=== PATIENT | female | born 1955 | race African-American/Black ===

== ENCOUNTER → 2017-01-21 | Outpatient (CLI) | payer MEDICARE, BC ==
[2017-01-21 11:21] LABS: ANION GAP 8 (5-19); BLOOD UREA NITROGEN 19 mg/dL (7-20); CALCIUM 10.4 mg/dL (8.4-10.2); CARBON DIOXIDE 32 mmol/L (22-30); CHLORIDE 101 mmol/L (98-107); CREATININE RESULT 0.62 mg/dL (0.52-1.25); GLUCOSE 230 mg/dL (75-110); POTASSIUM 4.4 mmol/L (3.6-5.0); SODIUM 141.2 mmol/L (137-145)
[2017-01-22 11:39] LABS: CREATININE URINE 52.4 mg/dL (Not Estab.); MICROALBUMIN URINE 8.4 ug/mL (Not Estab.)
== END ==
LOC: OD 09:42
PROVIDERS: ATTEND Internal Medicine Nephrology
DX: R80.9 Proteinuria, unspecified (principal); E11.21 Type 2 diabetes mellitus with diabetic nephropathy; N28.9 Disorder of kidney and ureter, unspecified; I10 Essential (primary) hypertension
CPT/HCPCS: 36415; 80048; 82043; 82570

== ENCOUNTER → 2017-04-16 | Outpatient (CLI) | payer MEDICARE, BC ==
[2017-04-16 12:20] LABS: ALANINE AMINOTRANSFERASE 35 U/L (9-52); ALKALINE PHOSPHATASE 112 U/L (38-126); ANION GAP 11 (5-19); ASPARTATE AMINO TRANSFERASE 18 U/L (14-36); BILIRUBIN,DIRECT 0.3 mg/dL (0.0-0.4); BILIRUBIN,TOTAL 0.5 mg/dL (0.2-1.3); BLOOD UREA NITROGEN 22 mg/dL (7-20); CARBON DIOXIDE 29 mmol/L (22-30); CHLORIDE 103 mmol/L (98-107); CHOLESTEROL 120.58 mg/dL (0-200); CREATININE RESULT 0.59 mg/dL (0.52-1.25); Direct HDL 45 mg/dL (>40); GLUCOSE 220 mg/dL (75-110); POTASSIUM 4.3 mmol/L (3.6-5.0); SODIUM 142.8 mmol/L (137-145); TOTAL PROTEIN 6.4 g/dL (6.3-8.2); TRIGLYCERIDES 74 mg/dL (<150)
[2017-04-16 12:31] LABS: DIRECT LDL 52 mg/dL (<100)
== END ==
LOC: OD 10:34
PROVIDERS: ATTEND Internal Medicine
DX: E78.5 Hyperlipidemia, unspecified (principal); I10 Essential (primary) hypertension; I66.9 Occlusion and stenosis of unspecified cerebral artery; E11.9 Type 2 diabetes mellitus without complications; R42 Dizziness and giddiness; Z79.899 Other long term (current) drug therapy; Z95.1 Presence of aortocoronary bypass graft
CPT/HCPCS: 36415; 80053; 80061

== ENCOUNTER 2017-05-29 08:54 | Emergency (ER) | payer BC, MEDICARE ==
--- NOTE | 2017-05-29 10:20 | ER Document Report ---
ED General - General Chief Complaint: Wound Infection Stated Complaint: TOE INJURY Time Seen by Provider: 05/29/17 09:55 Notes: Ms. Oliver is a 61-year-old female poorly controlled diabetic presenting with several weeks of right-sided toe pain and redness, mild, limited by her neuropathy associated with some drainage and swelling. She is not actually sure how long it has been but her daughter estimates this timeframe. She denies fevers chills. She did not check her blood sugar. 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 TRAVEL OUTSIDE OF THE [place] IN LAST 30 DAYS: No - Related Data Allergies/Adverse Reactions: No Known Allergies Allergy (Unverified 10/27/11 22:18) Home Medications: Current Home Medications Clopidogrel Bisulfate [Plavix 75 mg Tablet] 75 mg PO DAILY 05/29/17 [History] Metformin HCl [Metformin HCl ER] 1,000 mg PO BIDACBS 05/29/17 [History] Past Medical History - Social History Smoking Status: Former Smoker Chew tobacco use (# tins/day): No Frequency of alcohol use: Occasional Drug Abuse: Marijuana Family History: Reviewed & Not Pertinent Patient has suicidal ideation: No Patient has homicidal ideation: No - Past Medical History Cardiac Medical History: Reports: Hx Heart Attack, Hx Hypertension Neurological Medical History: Reports: Hx Cerebrovascular Accident Endocrine Medical History: Reports: Hx Diabetes Mellitus Type 2 Renal/ Medical History: Denies: Hx Peritoneal Dialysis Past Surgical History: Reports: Hx Cardiac Surgery - stent placement - Immunizations Hx Diphtheria, Pertussis, Tetanus Vaccination: - UNKNOWN Review of Systems - Review of Systems Notes: GEN: Denies fever, chills, weight loss ENT: Denies sore throat, nasal discharge, ear pain EYES: Denies blurry vision, eye pain, discharge CV: Denies chest pain, palpitations, edema RESP: Denies cough, shortness of breath, wheezing GI: Denies abdominal pain, nausea, vomiting, diarrhea MSK: D toe pain swelling and drainage, SKIN: Denies rash, skin lesions LYMPH: Denies swollen glands/lymph nodes NEURO: Denies headache, focal weakness or numbness, dizziness PSYCH: Denies depression, suicidal or homicidal ideation Physical Exam - Vital signs Vitals: Temp Pulse Resp BP Pulse Ox 97.9 F 87 16 155/69 H 97 05/29/17 09:00 05/29/17 09:00 05/29/17 09:00 05/29/17 09:00 05/29/17 09:00 - Notes Notes: General: No acute distress, well-nourished Head: Atraumatic, normocephalic ENT: Mouth normal, oropharynx moist, no exudates or tonsillar enlargement Eyes: Conjunctiva normal, pupils equal, lids normal Neck: No JVD, supple, no guarding CVS: Normal rate, regular rhythm, no murmurs Resp: No resp distress, equal and normal breath sounds bilaterally GI: Nondistended, soft, no tenderness to palpation, no rebound or guarding Ext: Right great toe second and third toe swelling, second is the worst, with ulceration beneath the toe, and changes consistent with wet gangrene, nontender. Mild erythema going up the dorsum of the foot. Skin: No rash, warm Lymphatic: No lymphadeopathy noted Neuro: Awake, alert. Face symmetric. Chronic appearing right-sided weakness and contracture consistent with prior stroke. Course - Re-evaluation Re-evalutation: 05/29/17 10:19 Poorly controlled diabetic presents with changes of the foot consistent with cellulitis osteomyelitis versus wet gangrene. We will get x-rays cultures, rule out DKA and admitted for further management. 05/29/17 10:35 X-ray shows osteomyelitis of the second toe. Will withhold antibiotics given that she is clinically stable and will need operation. I spoke with the transfer center advisement at 10:30 AM asking for orthopedics. 05/29/17 11:[address] Silver. Previously spoke with Dr. Euceda from orthopedics who stated typically vascular surgery handle this type of patient. - Vital Signs Vital signs: Temp Pulse Resp BP Pulse Ox 97.8 F 76 16 159/75 H 99 05/29/17 11:06 05/29/17 11:06 05/29/17 09:00 05/29/17 11:06 05/29/17 11:06 - Laboratory Result Diagrams: 05/29/17 09:55 05/29/17 09:55 Laboratory results interpreted by me: 05/29/17 05/29/17 09:55 09:55 RBC 3.71 L Hgb 11.5 L Hct 34.9 L ESR 42 H BUN 22 H Glucose 290 H C-Reactive Protein 64.5 H - Diagnostic Test Radiology reviewed: Image reviewed, Reports reviewed
[2017-05-29 10:22] LABS: ABSOLUTE BASOPHILS # (AUTO) 0.1 10^3/uL (0.0-0.2); ABSOLUTE EOSINOPHILS # (AUTO) 0.1 10^3/uL (0.0-0.6); ABSOLUTE MONOCYTES (AUTO) 0.8 10^3/uL (0.1-1.4); ABSOLUTE NEUT (AUTO) 5.5 10^3/uL (1.7-8.2); BASOPHILS % (AUTO) 0.8 % (0-2); EOSINOPHILS % (AUTO) 1.4 % (0-6); HEMATOCRIT 34.9 % (36.0-47.0); HEMOGLOBIN 11.5 g/dL (12.0-15.5); HGB HCT DIFFERENCE -0.4; LYMPHOCYTES % (AUTO) 23.4 % (13-45); MEAN CORPUSCULAR HEMOGLOBIN 31.1 pg (27.0-33.4); MEAN CORPUSCULAR VOLUME 94 fl (80-97); MONOCYTES % (AUTO) 9.3 % (3-13); RED BLOOD COUNT 3.71 10^6/uL (3.72-5.28); RED CELL DISTRIBUTION WIDTH 13.5 % (11.5-14.0); SEGMENTED NEUTROPHILS % (AUTO) 65.1 % (42-78); WHITE BLOOD COUNT 8.4 10^3/uL (4.0-10.5)
--- NOTE | 2017-05-29 10:31 | RADIOLOGY REPORT (SQ) ---
EXAM DESCRIPTION: FOOT RIGHT COMPLETE COMPLETED DATE/TIME: 05/29/2017 10:22 am REASON FOR STUDY: right 2nd toe infection COMPARISON: None. NUMBER OF VIEWS: Three views. TECHNIQUE: AP, lateral and oblique radiographic images acquired of the right foot. LIMITATIONS: None. FINDINGS: MINERALIZATION: Osteopenia. BONES: There appears to be erosion of the terminal tuft of the a 2nd distal phalanx. JOINTS: No effusions. SOFT TISSUES: No soft tissue swelling. No foreign body. OTHER: No other significant finding. IMPRESSION: Erosion of the terminal tuft of the 2nd distal phalanx concerning for osteomyelitis. TECHNICAL DOCUMENTATION: JOB ID: [id number] [employer]- All Rights Reserved
[2017-05-29 10:48] LABS: ALANINE AMINOTRANSFERASE 34 U/L (9-52); ALBUMIN 3.6 g/dL (3.5-5.0); ALKALINE PHOSPHATASE 119 U/L (38-126); ANION GAP 9 (5-19); ASPARTATE AMINO TRANSFERASE 18 U/L (14-36); BILIRUBIN,DIRECT 0.3 mg/dL (0.0-0.4); BILIRUBIN,TOTAL 0.7 mg/dL (0.2-1.3); BLOOD UREA NITROGEN 22 mg/dL (7-20); C-REACTIVE PROTEIN 64.5 mg/L (<10.0); CALCIUM 9.3 mg/dL (8.4-10.2); CARBON DIOXIDE 29 mmol/L (22-30); CHLORIDE 102 mmol/L (98-107); CREATININE RESULT 0.65 mg/dL (0.52-1.25); GLUCOSE 290 mg/dL (75-110); POTASSIUM 4.2 mmol/L (3.6-5.0); SODIUM 140.3 mmol/L (137-145); TOTAL PROTEIN 6.4 g/dL (6.3-8.2)
[2017-05-29 11:01] LABS: ERYTHROCYTE SEDIMENTATION RATE 42 mm/hr (0-30)
--- NOTE | 2017-05-29 13:56 | RADIOLOGY REPORT (SQ) ---
EXAM DESCRIPTION: CHEST SINGLE VIEW COMPLETED DATE/TIME: 05/29/2017 1:22 pm REASON FOR STUDY: preop COMPARISON: 10/27/2011 EXAM PARAMETERS: NUMBER OF VIEWS: One view. TECHNIQUE: Single frontal radiographic view of the chest acquired. RADIATION DOSE: NA LIMITATIONS: None. FINDINGS: LUNGS AND PLEURA: No opacities, masses or pneumothorax. No pleural effusion. MEDIASTINUM AND HILAR STRUCTURES: No masses. Contour normal. HEART AND VASCULAR STRUCTURES: Heart normal in size. Normal vasculature. BONES: No acute findings. HARDWARE: None in the chest. OTHER: No other significant finding. IMPRESSION: NO ACUTE RADIOGRAPHIC FINDING IN THE CHEST. TECHNICAL DOCUMENTATION: JOB ID: [id number]
[2017-05-29] MEDS ORDERED: METOPROLOL TARTRATE 25 MG TABLET PO ONE (20:54)
[2017-05-29] MEDS ORDERED: METOPROLOL TARTRATE 50 MG TABLET ONE (20:57)
[2017-05-29 22:56] VITALS: BP 165/81
== END 2017-05-29 20:42 | disposition short-term general hospital (02) ==
LOC: ER 08:54
DX: E11.69 Type 2 diabetes mellitus with other specified complication (principal); M86.171 Other acute osteomyelitis, right ankle and foot; E11.40 Type 2 diabetes mellitus with diabetic neuropathy, unspecified; E11.65 Type 2 diabetes mellitus with hyperglycemia; Z89.412 Acquired absence of left great toe; Z87.891 Personal history of nicotine dependence; Z86.73 Personal history of transient ischemic attack (TIA), and cerebral infarction without residual deficits; Z79.02 Long term (current) use of antithrombotics/antiplatelets; Z79.84 Long term (current) use of oral hypoglycemic drugs
CPT/HCPCS: 99285; 36415; 87040; 87070; 87205; 85025; 85652; 86140; 87077; 80053; 87186; 71010; 73630; A9270

== ENCOUNTER → 2017-10-22 | Outpatient (CLI) | payer MEDICARE ==
[2017-10-22 11:53] LABS: ALANINE AMINOTRANSFERASE 31 U/L (9-52); ALBUMIN 4.4 g/dL (3.5-5.0); ALKALINE PHOSPHATASE 94 U/L (38-126); ANION GAP 13 (5-19); ASPARTATE AMINO TRANSFERASE 18 U/L (14-36); BILIRUBIN,DIRECT 0.3 mg/dL (0.0-0.4); BILIRUBIN,TOTAL 0.4 mg/dL (0.2-1.3); BLOOD UREA NITROGEN 25 mg/dL (7-20); CALCIUM 10.2 mg/dL (8.4-10.2); CARBON DIOXIDE 29 mmol/L (22-30); CHLORIDE 105 mmol/L (98-107); CREATININE RESULT 0.74 mg/dL (0.52-1.25); Direct HDL 48 mg/dL (>40); GLUCOSE 99 mg/dL (75-110); POTASSIUM 4.8 mmol/L (3.6-5.0); SODIUM 146.8 mmol/L (137-145); TOTAL PROTEIN 6.7 g/dL (6.3-8.2); TRIGLYCERIDES 55 mg/dL (<150)
[2017-10-22 12:04] LABS: DIRECT LDL 64 mg/dL (<100)
== END ==
LOC: OD 10:18
PROVIDERS: ATTEND Internal Medicine
DX: I25.2 Old myocardial infarction (principal); R42 Dizziness and giddiness; I10 Essential (primary) hypertension; E11.9 Type 2 diabetes mellitus without complications; E78.5 Hyperlipidemia, unspecified; I66.9 Occlusion and stenosis of unspecified cerebral artery; Z95.1 Presence of aortocoronary bypass graft; Z79.899 Other long term (current) drug therapy
CPT/HCPCS: 36415; 80053; 80061; 83036

== ENCOUNTER → 2018-01-23 | Outpatient (CLI) | payer MEDICARE, MEDICAID ==
[2018-01-23 11:00] LABS: ANION GAP 10 (5-19); BLOOD UREA NITROGEN 19 mg/dL (7-20); CALCIUM 10.4 mg/dL (8.4-10.2); CARBON DIOXIDE 29 mmol/L (22-30); CHLORIDE 105 mmol/L (98-107); GLUCOSE 149 mg/dL (75-110); POTASSIUM 4.3 mmol/L (3.6-5.0); SODIUM 144.4 mmol/L (137-145)
[2018-01-24 11:40] LABS: CREATININE URINE 112.2 mg/dL (Not Estab.); MICROALBUMIN URINE 7.5 ug/mL (Not Estab.)
== END ==
LOC: OD 09:16
PROVIDERS: ATTEND Internal Medicine Nephrology
DX: E11.9 Type 2 diabetes mellitus without complications (principal); R80.9 Proteinuria, unspecified
CPT/HCPCS: 36415; 80048; 82043; 82570

== ENCOUNTER → 2018-04-11 | Outpatient (CLI) | payer MEDICARE, MEDICAID ==
[2018-04-11 09:48] LABS: CHOLESTEROL 112.73 mg/dL (0-200); TRIGLYCERIDES 40 mg/dL (<150)
[2018-04-11 10:01] LABS: DIRECT LDL 45 mg/dL (<100)
== END ==
LOC: OD 08:52
PROVIDERS: ATTEND Internal Medicine
DX: I25.10 Atherosclerotic heart disease of native coronary artery without angina pectoris (principal); R42 Dizziness and giddiness; I10 Essential (primary) hypertension; E11.9 Type 2 diabetes mellitus without complications; E78.5 Hyperlipidemia, unspecified; I25.2 Old myocardial infarction; I66.9 Occlusion and stenosis of unspecified cerebral artery; E78.00 Pure hypercholesterolemia, unspecified; Z79.899 Other long term (current) drug therapy
CPT/HCPCS: 36415; 80061

== ENCOUNTER → 2018-04-18 | Outpatient (CLI) | payer MEDICARE, MEDICAID | LOC: OD 17:18 | PROVIDERS: ATTEND Preventive Medicine Undersea and Hyperbaric Medicine | DX: L03.031 Cellulitis of right toe (principal) | CPT/HCPCS: 87070; 87075; 87077; 87186; 87205 ==

== ENCOUNTER → 2018-07-16 | Outpatient (CLI) | payer MEDICARE, MEDICAID ==
--- NOTE | 2018-07-16 15:56 | RADIOLOGY REPORT (SQ) ---
EXAM DESCRIPTION: FOOT RIGHT COMPLETE COMPLETED DATE/TIME: 07/16/2018 3:38 pm REASON FOR STUDY: NON-PRS CHRONIC ULCER OTH PRT RIGHT FOOT W NECROSIS OF BONE E11.621 TYPE 2 DIABET ES MELLITUS WITH FOOT ULCER L97.514 NON-PRS CHRONIC ULCER OTH PRT RIGHT FOOT W NECROSIS COMPARISON: 05/29/2017 NUMBER OF VIEWS: Three views. TECHNIQUE: AP, lateral and oblique radiographic images acquired of the right foot. LIMITATIONS: None. FINDINGS: MINERALIZATION: Osteopenia. BONES: Presumed amputation of the distal seconds ray at the level of proximal phalanx. No evidence f or osteomyelitis in the seconds phalanx. There is diffuse destruction of the 1st distal phalanx with soft tissue swelling. Osteomyelitis. JOINTS: No effusions. SOFT TISSUES: No soft tissue swelling. No foreign body. OTHER: No other significant finding. IMPRESSION: Osteomyelitis of the distal 1st phalanx. Amputation level of proximal phalanx seconds ray. TECHNICAL DOCUMENTATION: JOB ID: [id number] [employer]- All Rights Reserved Reading location - IP/workstation name: [email or web address]
[2018-07-16 15:58] LABS: ABSOLUTE BASOPHILS # (AUTO) 0.1 10^3/uL (0.0-0.2); ABSOLUTE EOSINOPHILS # (AUTO) 0.1 10^3/uL (0.0-0.6); ABSOLUTE LYMPHOCYTES (AUTO) 2.3 10^3/uL (0.5-4.7); ABSOLUTE MONOCYTES (AUTO) 0.6 10^3/uL (0.1-1.4); ABSOLUTE NEUT (AUTO) 6.9 10^3/uL (1.7-8.2); BASOPHILS % (AUTO) 0.5 % (0-2); EOSINOPHILS % (AUTO) 0.9 % (0-6); HEMATOCRIT 33.8 % (36.0-47.0); HEMOGLOBIN 11.2 g/dL (12.0-15.5); LYMPHOCYTES % (AUTO) 23.5 % (13-45); MEAN CORPUSCULAR HEMOGLOBIN 30.1 pg (27.0-33.4); MEAN CORPUSCULAR HGB CONC 33.1 g/dL (32.0-36.0); MEAN CORPUSCULAR VOLUME 91 fl (80-97); MONOCYTES % (AUTO) 6.5 % (3-13); PLATELET COUNT 420 10^3/uL (150-450); RED BLOOD COUNT 3.71 10^6/uL (3.72-5.28); RED CELL DISTRIBUTION WIDTH 13.9 % (11.5-14.0); SEGMENTED NEUTROPHILS % (AUTO) 68.6 % (42-78); TOTAL CELLS COUNTED % (AUTO) 100 %
[2018-07-16 16:04] LABS: ALANINE AMINOTRANSFERASE 24 U/L (9-52); ALBUMIN 3.8 g/dL (3.5-5.0); ALKALINE PHOSPHATASE 89 U/L (38-126); ANION GAP 10 (5-19); ASPARTATE AMINO TRANSFERASE 18 U/L (14-36); BILIRUBIN,DIRECT 0.2 mg/dL (0.0-0.4); BILIRUBIN,TOTAL 0.2 mg/dL (0.2-1.3); BLOOD UREA NITROGEN 24 mg/dL (7-20); CALCIUM 9.6 mg/dL (8.4-10.2); CARBON DIOXIDE 32 mmol/L (22-30); CHLORIDE 107 mmol/L (98-107); GLUCOSE 92 mg/dL (75-110); SODIUM 148.9 mmol/L (137-145); TOTAL PROTEIN 6.7 g/dL (6.3-8.2)
[2018-07-16 16:07] LABS: C-REACTIVE PROTEIN < 5.0 mg/L (<10.0)
[2018-07-16 16:35] LABS: ERYTHROCYTE SEDIMENTATION RATE 24 mm/hr (0-30)
== END ==
LOC: OD 14:51
PROVIDERS: ATTEND Preventive Medicine Undersea and Hyperbaric Medicine
DX: E11.621 Type 2 diabetes mellitus with foot ulcer (principal); L97.514 Non-pressure chronic ulcer of other part of right foot with necrosis of bone; M86.8X7 Other osteomyelitis, ankle and foot
CPT/HCPCS: 36415; 80053; 83036; 85025; 85652; 86140

== ENCOUNTER 2018-09-05 20:21 | Emergency (ER) | payer MEDICARE, MEDICAID ==
--- NOTE | 2018-09-05 20:44 | ER Document Report ---
ED General - General Stated Complaint: FALL Time Seen by Provider: 09/05/18 20:30 Notes: Patient is a 62-year-old female that comes to the emergency department for chief complaint of fall and head injury. Patient reports she was on her couch, states she fell off the couch and hit her head, she did pass out, she was found by EMS to be alert but with very low blood sugar at 39, she was given oral glucose, patient states that she has pain in the area where she hit her head and swelling above her left eye, she denies any other locations of pain. Past medical history of chronic right-sided weakness from CVA, she is on Plavix, she is on glimepiride for her diabetes. She has taken her medications today. She states she had turkey for lunch. She denies chest pain, shortness of breath, fever, vomiting. TRAVEL OUTSIDE OF THE [place] IN LAST 30 DAYS: No - Related Data Allergies/Adverse Reactions: No Known Allergies Allergy (Unverified 10/27/11 22:18) Past Medical History - General Information source: Patient - Social History Smoking Status: Never Smoker Frequency of alcohol use: None Drug Abuse: None Lives with: Family Family History: Reviewed & Not Pertinent - Past Medical History Cardiac Medical History: Reports: Hx Heart Attack, Hx Hypertension Neurological Medical History: Reports: Hx Cerebrovascular Accident Endocrine Medical History: Reports: Hx Diabetes Mellitus Type 2 Renal/ Medical History: Denies: Hx Peritoneal Dialysis Past Surgical History: Reports: Hx Cardiac Surgery - stent placement Review of Systems - Review of Systems Constitutional: No symptoms reported EENT: No symptoms reported Cardiovascular: No symptoms reported Respiratory: No symptoms reported Gastrointestinal: No symptoms reported Genitourinary: No symptoms reported Female Genitourinary: No symptoms reported Musculoskeletal: No symptoms reported Skin: No symptoms reported Hematologic/Lymphatic: No symptoms reported Neurological/Psychological: See HPI Physical Exam - Vital signs Vitals: Pulse Ox 99 09/05/18 20:30 - Notes Notes: GENERAL: Alert, interacts well. No acute distress. HEAD: There is a hematoma over the left eyebrow, does not include the eyelids, no open wounds, no noted tenderness, no other traumatic findings. EYES: Pupils equal, round, and reactive to light. Extraocular movements intact. ENT: Oral mucosa moist, tongue midline. [Nares patent, no nasal septal hematoma , TM's intact.] NECK: Full range of motion. Supple. Trachea midline. LUNGS: Clear to auscultation bilaterally, no wheezes, rales, or rhonchi. No respiratory distress. HEART: Regular rate and rhythm. No murmur ABDOMEN: Soft, non-tender. Non-distended. Bowel sounds present in all 4 quadrants. EXTREMITIES: Chronic right sided weakness with grey of the right arm, left side evaluation unremarkable, normal distal neurovascular exam. BACK: no cervical, thoracic, lumbar midline tenderness. No saddle anesthesia, normal distal neurovascular exam. NEUROLOGICAL: Alert and oriented x3. Normal speech. Chronic right-sided weakness. [cranial nerves II through XII grossly intact]. PSYCH: Normal affect, normal mood. SKIN: Warm, dry, normal turgor. No rashes or lesions noted. Course - Re-evaluation Re-evalutation: Blood chemistry unremarkable. Patient is alert and oriented. She ate, on recheck after eating crackers her blood glucose is 151. She denies any current complaints other than mild headache. CT of the head shows left scalp/frontal hematoma with no intracranial findings or skull fracture. CT of the neck unremarkable. Family at bedside states that patient fell asleep or passed out on the couch and then fell off the couch, they state that she did not eat enough today but did take her medications. No fever, sick symptoms, chest pain, shortness of breath or other reported complaints by patient and family suggesting other causes of hypoglycemia. Patient has been monitored for several hours now, she continues to be main alert and well-appearing, blood glucose trended up after eating. They are asking to go home. Discussed importance of eating along with her medications, discussed head injury precautions, discussed follow-up and return precautions. Patient states she has close follow-up with primary care. Family states understanding and agreement. - Vital Signs Vital signs: Temp Pulse Resp BP Pulse Ox 98.6 F 14 165/90 H 100 09/05/18 22:18 09/05/18 23:01 09/05/18 23:01 09/05/18 23:01 - Laboratory Result Diagrams: 09/05/18 20:40 Laboratory results interpreted by me: 09/05/18 09/05/18 21:41 22:59 POC Glucose 151 H 225 H Discharge - Discharge Clinical Impression: Hypoglycemia Fall Qualifiers: Encounter type: initial encounter Qualified Code(s): W19.XXXA - Unspecified fall, initial encounter Scalp hematoma Qualifiers: Encounter type: initial encounter Qualified Code(s): S00.03XA - Contusion of scalp, initial encounter Condition: Stable Disposition: HOME, SELF-CARE Additional Instructions: You have a hematoma on her scalp but no concerning findings on the imaging or on your evaluation otherwise. This will resolve with time. Your blood sugar became very low today, on monitoring this has not shown any concerning abnormalities after you were fed. Remember to eat regularly while you are taking your medications. Follow-up in the next 2-3 days with your primary care provider for additional evaluation and management. Return to the emergency department for any concerning symptoms including passing out, see head injury precautions listed below. Head Injury Precautions At this point, there is no evidence that your head injury is serious. Observation is necessary, however. Take only clear liquids for the first few hours, unless told otherwise by the doctor. If no pain medication was prescribed, you may take acetaminophen according to the directions on the bottle. Do not take any medication that may alter your level of alertness (unless you've discussed it with the doctor first) . Limit activity for the first 24 hours. Bed rest is best. During the first 24 hours, check to see approximately every two to three hours that the patient is easily arousable, responds normally, and can perform common tasks such as walking without difficulty. Contact your doctor or go to the hospital if any of the following things occur: Persistent vomiting, difficulty in arousing the patient, worsening or continued headache, or failure to improve as expected. Head injuries can cause symptoms that persist for a few days or even a few weeks. Referrals: LILLY GIVENS DPM [Primary Care Provider] - Follow up as needed
--- NOTE | 2018-09-05 21:07 | RADIOLOGY REPORT (SQ) ---
EXAM DESCRIPTION: CT HEAD WITHOUT COMPLETED DATE/TIME: 09/05/2018 8:58 pm REASON FOR STUDY: fall, head injury, LOC, on plavix COMPARISON: CT brain 10/27/2011 TECHNIQUE: Axial images acquired through the brain without intravenous contrast. Images reviewed wi th bone, brain and subdural windows. Additional sagittal and coronal reconstructions were generated. Images stored on PACS. All CT scanners at this facility use dose modulation, iterative reconstruction, and/or weight based d osing when appropriate to reduce radiation dose to as low as reasonably achievable (ALARA). [facility]: Dose Right [facility]: CareDose [facility]: Dose Right [facility]: Teradose 4D [facility]: Smart streamOnce RADIATION DOSE: CT Rad equipment meets quality standard of care and radiation dose reduction techniq ues were employed. CTDIvol: 53.2 mGy. DLP: 991 mGy-cm. mGy. LIMITATIONS: None. FINDINGS: VENTRICLES: Normal size and contour. CEREBRUM: No masses. No hemorrhage. No midline shift. No evidence for acute infarction. Old left M CA distribution infarct. CEREBELLUM: No masses. No hemorrhage. No alteration of density. No evidence for acute infarction. EXTRAAXIAL SPACES: No fluid collections. No masses. ORBITS AND GLOBE: No intra- or extraconal masses. Normal contour of globe without masses. CALVARIUM: No fracture. PARANASAL SINUSES: No fluid or mucosal thickening. SOFT TISSUES: 3 x 2 cm acute hematoma left frontal scalp. OTHER: No other significant finding. IMPRESSION: No acute intracranial changes. Left frontal scalp hematoma without underlying skull fracture. Old left MCA distribution infarct EVIDENCE OF ACUTE STROKE: NO. COMMENT: Quality ID # 436: Final reports with documentation of one or more dose reduction techniques (e.g., Automated exposure control, adjustment of the mA and/or kV according to patient size, use of iterative reconstruction technique) TECHNICAL DOCUMENTATION: JOB ID: [id number] [employer]- All Rights Reserved Reading location - IP/workstation name: [email or web address]
--- NOTE | 2018-09-05 21:10 | RADIOLOGY REPORT (SQ) ---
EXAM DESCRIPTION: CT CERVICAL SPINE WITHOUT COMPLETED DATE/TIME: 09/05/2018 8:58 pm REASON FOR STUDY: fall, head injury, neck pain COMPARISON: None. TECHNIQUE: Axial images acquired through the cervical spine without intravenous contrast. Images re viewed with lung, soft tissue and bone windows. Reconstructed coronal and sagittal MPR images review ed. Images stored on PACS. All CT scanners at this facility use dose modulation, iterative reconstruction, and/or weight based d osing when appropriate to reduce radiation dose to as low as reasonably achievable (ALARA). [facility]: Dose Right [facility]: CareDose [facility]: Dose Right [facility]: Teradose 4D [facility]: Smart Technologies RADIATION DOSE: CT Rad equipment meets quality standard of care and radiation dose reduction techniq ues were employed. CTDIvol: 15.4 mGy. DLP: 325 mGy-cm. mGy. LIMITATIONS: None. FINDINGS: ALIGNMENT: Mild anterolisthesis of C7 over T1 related to advanced facet arthropathy. MINERALIZATION: Normal. VERTEBRAL BODIES: No fractures or dislocation. DISCS: Craniocervical junction, C1-2, C2-3 are unremarkable. At C3-4 and C4-5, posterior disc bulging is present. No bony central or foraminal stenosis. At C5-6, mild central canal stenosis, mild right and moderate left foraminal narrowing is present fro m disc bulge and facet and ligament hypertrophy. At C6-7, mild central canal stenosis, mild right and moderate left foraminal narrowing is present fro m disc bulge and facet and ligament hypertrophy Degenerative anterolisthesis of C7 over T1 without significant central or foraminal encroachment. FACETS, LATERAL MASSES, POSTERIOR ELEMENTS: No fractures. No dislocation. No acute findings. HARDWARE: None in the spine. VISUALIZED RIBS: No fractures. LUNG APICES AND SOFT TISSUES: No significant or acute findings. OTHER: No other significant finding. IMPRESSION: No acute findings TECHNICAL DOCUMENTATION: JOB ID: [id number] Quality ID # [id number]: Final reports with documentation of one or more dose reduction techniques (e.g., Au tomated exposure control, adjustment of the mA and/or kV according to patient size, use of iterative reconstruction technique) 2010 [employer]- All Rights Reserved Reading location - IP/workstation name: [email or web address]
[2018-09-05 21:24] LABS: ANION GAP 11 (5-19); BLOOD UREA NITROGEN 20 mg/dL (7-20); CALCIUM 10.1 mg/dL (8.4-10.2); CARBON DIOXIDE 30 mmol/L (22-30); CHLORIDE 103 mmol/L (98-107); GLUCOSE 83 mg/dL (75-110); POTASSIUM 4.1 mmol/L (3.6-5.0); SODIUM 143.5 mmol/L (137-145)
[2018-09-05] MEDS ORDERED: ACETAMINOPHEN 325 MG TABLET PO ONE (22:06)
[2018-09-05 23:49] VITALS: BP 165/90
== END 2018-09-05 23:35 | disposition home or self-care (01) ==
LOC: ER 20:21
DX: S00.03XA Contusion of scalp, initial encounter (principal); W08.XXXA Fall from other furniture, initial encounter; E11.649 Type 2 diabetes mellitus with hypoglycemia without coma; Z79.84 Long term (current) use of oral hypoglycemic drugs; R22.0 Localized swelling, mass and lump, head; R51 Headache; I69.351 Hemiplegia and hemiparesis following cerebral infarction affecting right dominant side; Z79.02 Long term (current) use of antithrombotics/antiplatelets; I10 Essential (primary) hypertension; I25.2 Old myocardial infarction; Z95.5 Presence of coronary angioplasty implant and graft
CPT/HCPCS: 99284; 36415; 82962; 80048; 70450; 72125; A9270

== ENCOUNTER → 2018-10-02 | Outpatient (CLI) | payer MEDICARE, MEDICAID ==
[2018-10-02 16:36] LABS: ABSOLUTE EOSINOPHILS # (AUTO) 0.2 10^3/uL (0.0-0.6); ABSOLUTE LYMPHOCYTES (AUTO) 1.8 10^3/uL (0.5-4.7); ABSOLUTE MONOCYTES (AUTO) 0.5 10^3/uL (0.1-1.4); ABSOLUTE NEUT (AUTO) 3.5 10^3/uL (1.7-8.2); BASOPHILS % (AUTO) 0.8 % (0-2); EOSINOPHILS % (AUTO) 2.8 % (0-6); HEMATOCRIT 31.4 % (36.0-47.0); HEMOGLOBIN 10.5 g/dL (12.0-15.5); LYMPHOCYTES % (AUTO) 29.6 % (13-45); MEAN CORPUSCULAR HGB CONC 33.4 g/dL (32.0-36.0); MEAN CORPUSCULAR VOLUME 90 fl (80-97); MONOCYTES % (AUTO) 8.3 % (3-13); PLATELET COUNT 382 10^3/uL (150-450); RED CELL DISTRIBUTION WIDTH 14.3 % (11.5-14.0); SEGMENTED NEUTROPHILS % (AUTO) 58.5 % (42-78); TOTAL CELLS COUNTED % (AUTO) 100 %
--- NOTE | 2018-10-02 16:44 | RADIOLOGY REPORT (SQ) ---
EXAM DESCRIPTION: FOOT RIGHT COMPLETE COMPLETED DATE/TIME: 10/02/2018 4:30 pm REASON FOR STUDY: NON PRESSURE ULCER RT FOOT WITH NECROSIS OF BONE E11.21 TYPE 2 DIABETES MELLITUS WITH DIABETIC NEPHROPATHY L97.514 NON-PRS CHRONIC ULCER OTH PRT RIGHT FOOT W NECROSIS E11.621 TYPE 2 DIABETES MELLITUS WITH FOOT ULCER COMPARISON: None. NUMBER OF VIEWS: Three views. TECHNIQUE: AP, lateral and oblique radiographic images acquired of the right foot. LIMITATIONS: None. FINDINGS: Bones are osteopenic. There is a defect in the proximal 1st phalanx with irregular anteri or margins. There is a gap between the anterior margin and a bone fragment which is angled dorsally. Uncertain if this is a pathologic fracture or heterotopic bone status post amputation. Prior amput ation 2nd phalanx at proximal phalangeal midshaft. IMPRESSION: Osteomyelitis and pathologic fracture or heterotopic bone 1st phalanx. TECHNICAL DOCUMENTATION: JOB ID: [id number] [employer]- All Rights Reserved Reading location - IP/workstation name: [email or web address]
[2018-10-02 17:02] LABS: ALANINE AMINOTRANSFERASE 15 U/L (9-52); ALBUMIN 3.8 g/dL (3.5-5.0); ALKALINE PHOSPHATASE 104 U/L (38-126); ANION GAP 11 (5-19); ASPARTATE AMINO TRANSFERASE 15 U/L (14-36); BILIRUBIN,DIRECT 0.2 mg/dL (0.0-0.4); BILIRUBIN,TOTAL 0.4 mg/dL (0.2-1.3); BLOOD UREA NITROGEN 20 mg/dL (7-20); CALCIUM 9.7 mg/dL (8.4-10.2); CARBON DIOXIDE 30 mmol/L (22-30); CHLORIDE 101 mmol/L (98-107); GLUCOSE 171 mg/dL (75-110); POTASSIUM 4.4 mmol/L (3.6-5.0); SODIUM 141.8 mmol/L (137-145); TOTAL PROTEIN 6.6 g/dL (6.3-8.2)
[2018-10-02 17:06] LABS: C-REACTIVE PROTEIN < 5.0 mg/L (<10.0)
[2018-10-02 17:13] LABS: ERYTHROCYTE SEDIMENTATION RATE 25 mm/hr (0-30)
== END ==
LOC: OD 15:28
PROVIDERS: ATTEND Preventive Medicine Undersea and Hyperbaric Medicine
DX: E11.621 Type 2 diabetes mellitus with foot ulcer (principal); L97.514 Non-pressure chronic ulcer of other part of right foot with necrosis of bone; M86.8X7 Other osteomyelitis, ankle and foot; M84.477D Pathological fracture, right toe(s), subsequent encounter for fracture with routine healing
CPT/HCPCS: 36415; 80053; 83036; 85025; 85652; 86140

== ENCOUNTER → 2018-11-07 | Outpatient (CLI) | payer MEDICARE, MEDICAID ==
[2018-11-07 11:04] LABS: ALANINE AMINOTRANSFERASE 26 U/L (9-52); ALBUMIN 3.8 g/dL (3.5-5.0); ALKALINE PHOSPHATASE 107 U/L (38-126); ANION GAP 12 (5-19); ASPARTATE AMINO TRANSFERASE 19 U/L (14-36); BILIRUBIN,DIRECT 0.3 mg/dL (0.0-0.4); BILIRUBIN,TOTAL 0.3 mg/dL (0.2-1.3); BLOOD UREA NITROGEN 19 mg/dL (7-20); CALCIUM 9.6 mg/dL (8.4-10.2); CARBON DIOXIDE 29 mmol/L (22-30); CHLORIDE 101 mmol/L (98-107); CHOLESTEROL 113.26 mg/dL (0-200); GLUCOSE 97 mg/dL (75-110); POTASSIUM 4.5 mmol/L (3.6-5.0); SODIUM 142.2 mmol/L (137-145); TOTAL PROTEIN 6.8 g/dL (6.3-8.2); TRIGLYCERIDES 51 mg/dL (<150)
[2018-11-07 11:16] LABS: DIRECT LDL 61 mg/dL (<100)
== END ==
LOC: OD 09:22
PROVIDERS: ATTEND Internal Medicine
DX: I25.10 Atherosclerotic heart disease of native coronary artery without angina pectoris (principal); R42 Dizziness and giddiness; I10 Essential (primary) hypertension; D11.9 Benign neoplasm of major salivary gland, unspecified; E78.5 Hyperlipidemia, unspecified; I25.2 Old myocardial infarction; I66.9 Occlusion and stenosis of unspecified cerebral artery
CPT/HCPCS: 36415; 80053; 80061

== ENCOUNTER → 2018-12-16 | Outpatient (CLI) | payer MEDICARE, MEDICAID ==
[2018-12-16 14:10] LABS: ABSOLUTE BASOPHILS # (AUTO) 0.1 10^3/uL (0.0-0.2); ABSOLUTE EOSINOPHILS # (AUTO) 0.2 10^3/uL (0.0-0.6); ABSOLUTE LYMPHOCYTES (AUTO) 1.9 10^3/uL (0.5-4.7); ABSOLUTE MONOCYTES (AUTO) 0.4 10^3/uL (0.1-1.4); ABSOLUTE NEUT (AUTO) 3.6 10^3/uL (1.7-8.2); BASOPHILS % (AUTO) 0.8 % (0-2); EOSINOPHILS % (AUTO) 2.5 % (0-6); HEMATOCRIT 34.3 % (36.0-47.0); HEMOGLOBIN 11.3 g/dL (12.0-15.5); MEAN CORPUSCULAR HEMOGLOBIN 29.2 pg (27.0-33.4); MEAN CORPUSCULAR HGB CONC 32.9 g/dL (32.0-36.0); MEAN CORPUSCULAR VOLUME 89 fl (80-97); MONOCYTES % (AUTO) 6.5 % (3-13); PLATELET COUNT 363 10^3/uL (150-450); RED BLOOD COUNT 3.87 10^6/uL (3.72-5.28); RED CELL DISTRIBUTION WIDTH 14.2 % (11.5-14.0); SEGMENTED NEUTROPHILS % (AUTO) 59.2 % (42-78); TOTAL CELLS COUNTED % (AUTO) 100 %; WHITE BLOOD COUNT 6.1 10^3/uL (4.0-10.5)
--- NOTE | 2018-12-16 14:12 | RADIOLOGY REPORT (SQ) ---
EXAM DESCRIPTION: FOOT RIGHT COMPLETE COMPLETED DATE/TIME: 12/16/2018 1:36 pm REASON FOR STUDY: NON-PRS CHRONIC ULCER OTH PRT RIGHT FOOT W NECROSIS OF BONE E11.621 TYPE 2 DIABET ES MELLITUS WITH FOOT ULCER L97.514 NON-PRS CHRONIC ULCER OTH PRT RIGHT FOOT W NECROSIS COMPARISON: 10/02/2018. NUMBER OF VIEWS: Three views. TECHNIQUE: AP, lateral and oblique without weight bearing radiographic images acquired of the right foot. LIMITATIONS: None. FINDINGS: MINERALIZATION: Normal. BONES: Interval surgical resection of the distal great toe. Associated soft tissue deformity. Previ ous amputation of the 2nd toe. No acute fracture or dislocation. No worrisome bone lesions. No signi ficant osteophytes. JOINTS: No erosions. No rayshawn-articular osteopenia. No chondrocalcinosis. SOFT TISSUES: No swelling. No calcifications. OTHER: No other significant finding. IMPRESSION: SURGICAL CHANGES, AMPUTATION OF THE 1ST AND 2ND TOES. OTHERWISE NO ACUTE OR SIGNIFICANT FINDINGS. TECHNICAL DOCUMENTATION: JOB ID: [id number] [employer]- All Rights Reserved Reading location - IP/workstation name: [email or web address]
[2018-12-16 14:44] LABS: ALANINE AMINOTRANSFERASE 27 U/L (9-52); ALBUMIN 4.1 g/dL (3.5-5.0); ALKALINE PHOSPHATASE 99 U/L (38-126); ANION GAP 8 (5-19); ASPARTATE AMINO TRANSFERASE 17 U/L (14-36); BILIRUBIN,DIRECT 0.3 mg/dL (0.0-0.4); BILIRUBIN,TOTAL 0.3 mg/dL (0.2-1.3); BLOOD UREA NITROGEN 21 mg/dL (7-20); CALCIUM 9.7 mg/dL (8.4-10.2); CARBON DIOXIDE 30 mmol/L (22-30); CHLORIDE 103 mmol/L (98-107); GLUCOSE 227 mg/dL (75-110); POTASSIUM 4.3 mmol/L (3.6-5.0); SODIUM 141.3 mmol/L (137-145); TOTAL PROTEIN 6.7 g/dL (6.3-8.2)
[2018-12-16 14:48] LABS: C-REACTIVE PROTEIN < 5.0 mg/L (<10.0)
[2018-12-16 15:19] LABS: ERYTHROCYTE SEDIMENTATION RATE 16 mm/hr (0-30)
== END ==
LOC: WC 12:55
PROVIDERS: ATTEND Nurse Practitioner
DX: E11.621 Type 2 diabetes mellitus with foot ulcer (principal); L97.514 Non-pressure chronic ulcer of other part of right foot with necrosis of bone
CPT/HCPCS: 36415; 80053; 83036; 85025; 85652; 86140

== ENCOUNTER → 2019-01-15 | Outpatient (CLI) | payer MEDICARE ==
[2019-01-15 13:00] LABS: ABSOLUTE EOSINOPHILS # (AUTO) 0.2 10^3/uL (0.0-0.6); ABSOLUTE LYMPHOCYTES (AUTO) 1.7 10^3/uL (0.5-4.7); ABSOLUTE MONOCYTES (AUTO) 0.4 10^3/uL (0.1-1.4); ABSOLUTE NEUT (AUTO) 3.1 10^3/uL (1.7-8.2); BASOPHILS % (AUTO) 0.6 % (0-2); HEMATOCRIT 32.1 % (36.0-47.0); HEMOGLOBIN 10.7 g/dL (12.0-15.5); LYMPHOCYTES % (AUTO) 31.8 % (13-45); MEAN CORPUSCULAR HEMOGLOBIN 29.7 pg (27.0-33.4); MEAN CORPUSCULAR HGB CONC 33.4 g/dL (32.0-36.0); MEAN CORPUSCULAR VOLUME 89 fl (80-97); MONOCYTES % (AUTO) 7.8 % (3-13); PLATELET COUNT 322 10^3/uL (150-450); RED BLOOD COUNT 3.61 10^6/uL (3.72-5.28); RED CELL DISTRIBUTION WIDTH 14.4 % (11.5-14.0); SEGMENTED NEUTROPHILS % (AUTO) 56.8 % (42-78); TOTAL CELLS COUNTED % (AUTO) 100 %; WHITE BLOOD COUNT 5.5 10^3/uL (4.0-10.5)
[2019-01-15 13:11] LABS: INTERNATIONAL RATION (INR) 0.94; PROTHROMBIN TIME 13.1 SEC (11.4-15.4)
[2019-01-15 13:19] LABS: ANION GAP 9 (5-19); BLOOD UREA NITROGEN 21 mg/dL (7-20); CARBON DIOXIDE 31 mmol/L (22-30); CHLORIDE 104 mmol/L (98-107); GLUCOSE 179 mg/dL (75-110); POTASSIUM 4.4 mmol/L (3.6-5.0); SODIUM 143.6 mmol/L (137-145)
== END ==
LOC: OD 12:15
PROVIDERS: ATTEND Specialist
DX: I25.118 Atherosclerotic heart disease of native coronary artery with other forms of angina pectoris (principal); R42 Dizziness and giddiness; I10 Essential (primary) hypertension; E11.9 Type 2 diabetes mellitus without complications; I66.9 Occlusion and stenosis of unspecified cerebral artery; E78.5 Hyperlipidemia, unspecified; I73.9 Peripheral vascular disease, unspecified; I25.2 Old myocardial infarction; R01.1 Cardiac murmur, unspecified; R07.9 Chest pain, unspecified; Z98.61 Coronary angioplasty status; Z79.899 Other long term (current) drug therapy
CPT/HCPCS: 36415; 80051; 82565; 82947; 83735; 84520; 85025; 85610; 85730

== ENCOUNTER → 2019-01-20 | Day surgery (SDC) | payer MEDICARE ==
[~2019-01-20] MED LIST: ASPIRIN 325 MG TABLET PO PRN; ATENOLOL 50 MG TABLET PO PRN; DIAZEPAM 5 MG TABLET PO PRN; DIPHENHYDRAMINE HCL 50 MG CAPSULE PO PRN; FENTANYL CITRATE INJ/PF 100 MCG/2 ML AMPUL ONE; HEPARIN SOD (PORCINE) 1,000 UNIT/ML 10 ML VIAL ONE; HEPARIN SODIUM,PORCINE/NS/PF 2,000 UNIT/1,000 ML RTUINJ IV ONE; HYDRALAZINE HCL INJ/PF 20 MG/1 ML SDV IV ONE; HYDRALAZINE HCL INJ/PF 20 MG/1 ML SDV ONE; LIDOCAINE 1% INJ-PF (10 MG/ML) 30 ML SDV ONE; LOSARTAN POTASSIUM 50 MG TABLET PO PRN; MIDAZOLAM 2 MG/2 ML INJ ONE; NITROGLYCERIN 0.4 MG/TAB 25 TAB/BOTTLE SL PRN; NORMAL SALINE 1000 ML 1,000 ML IV PRN; RADIAL COCKTAIL SYRINGE 10 ML IV PRN
[2019-01-20 08:23] LABS: HEMATOCRIT 31.1 % (36.0-47.0); HEMOGLOBIN 10.3 g/dL (12.0-15.5); MEAN CORPUSCULAR HEMOGLOBIN 29.7 pg (27.0-33.4); MEAN CORPUSCULAR HGB CONC 33.1 g/dL (32.0-36.0); MEAN CORPUSCULAR VOLUME 90 fl (80-97); PLATELET COUNT 314 10^3/uL (150-450); RED BLOOD COUNT 3.47 10^6/uL (3.72-5.28); RED CELL DISTRIBUTION WIDTH 14.5 % (11.5-14.0); WHITE BLOOD COUNT 5.3 10^3/uL (4.0-10.5)
[2019-01-20 08:26] LABS: INTERNATIONAL RATION (INR) 0.96; PROTHROMBIN TIME 13.3 SEC (11.4-15.4)
[2019-01-20 08:42] LABS: ANION GAP 8 (5-19); BLOOD UREA NITROGEN 23 mg/dL (7-20); CALCIUM 9.6 mg/dL (8.4-10.2); CARBON DIOXIDE 31 mmol/L (22-30); CHLORIDE 105 mmol/L (98-107); GLUCOSE 208 mg/dL (75-110); POTASSIUM 4.3 mmol/L (3.6-5.0); SODIUM 143.5 mmol/L (137-145)
--- NOTE | 2019-01-20 11:49 | Operative Report ---
Operative Report DATE OF SURGERY: 01/20/19 PREOPERATIVE DIAGNOSIS: Coronary artery disease POSTOPERATIVE DIAGNOSIS: Ischemic cardiomyopathy, coronary artery disease OPERATION: Femoral approach left heart catheterization coronary angiography and left ventriculography SURGEON: KINGS CARRASQUILLO ANESTHESIA: Moderate Sedation COMPLICATIONS: None PROCEDURE: Following informed consent, the patient was premedicated with Diazepam and Benadryl. The right femoral region was prepared in the usual sterile and draped manner and anesthetized with 1% Lidocaine solution. A 6 Kazakh Introducer was placed transcutaneously into the right femoral artery without difficulty. A 6 Kazakh angled pigtail catheter was used for left heart catheterization and left ventriculography. This was performed in the standard CACERES projection. LVEDP was measured prior to and after the ventriculogram. Pull back across the aortic valve was performed with continuous hemodynamic monitoring. The catheter was exchanged to a JL-4 coronary catheter over a 0.035 ``J guidewire, and selective angiography was performed in multiple orthogonal projections. Selective right coronary angiography was performed using a JR-4 catheter. At the conclusion of the procedure, the catheter and sheaths were removed and hemostasis was achieved without difficulty. The patient left the Cardiac Catheterization Lab in stable condition, with intact distal pulses and no chest pain or other complications from the procedure. Conscious sedation was initiated, monitored, and maintained during the procedure with the start time of 833 and a completion time of 918 for a total procedure time of 45 minutes. A total of 1.5 milligrams of Versed and 50 micrograms and fentanyl were used for conscious sedation. HEMODYNAMIC DATA: [Aortic pressure to be getting the case is 134/53, post ventriculography LV pressure is 147/16 aortic pressure on pullback was 150/52 there is no gradient across the aortic valve] CORONARY ANATOMY: [] ANGIOGRAPHY: [] VENTRICULOGRAPHY: Ventriculography is performed in the CACERES projection and demonstrates [mildly depressed left ventricular function with posterior basal hypokinesis there is no evidence of mitral regurgitation the ascending aorta is normal diameter] . CORONARY ANGIOGRAPHY: [Injection of the left coronary system demonstrates left to right collaterals filling the right posterolateral and PDA and the distal portion of the right coronary artery the] LEFT MAIN: [Normal ] LEFT ANTERIOR DESCENDING: The LAD is a transapical vessel there are stents in the proximal midportion which are widely patent without evidence of restenosis the diagonal vessels are widely patent CIRCUMFLEX CORONARY: Is a moderate to large caliber vessel the circumflex has several calcified lesions the proximal lesion is about 30% there is a 60-70% mid circumflex stenosis prior to a bifurcation the superior ramus of the bifurcation has a 40-50% stenosis. RIGHT CORONARY ARTERY: [The right coronary artery is a dominant vessel this is completely occluded after a small right ventricular marginal branch there is no evidence of right to right collateralization the entire distal portion of the right coronary artery fills retrogradely from left to right collaterals.] IMPRESSION: 1. Lower limits of normal left ventricular function with posterior basal hypokinesis 2. No evidence of significant valvular heart disease 3. 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 Moderate disease in the circumflex Discussion: In the absence of documented ischemia or ongoing angina medical therapy is indicated should the patient develop symptoms percutaneous revascularization of the circumflex could be performed at a later date.
[2019-01-20 14:03] VITALS: BP 162/77
== END ==
LOC: CCL 07:02
PROVIDERS: ATTEND Internal Medicine Cardiovascular Disease
DX: I25.118 Atherosclerotic heart disease of native coronary artery with other forms of angina pectoris (principal); R94.39 Abnormal result of other cardiovascular function study; I25.2 Old myocardial infarction; E78.5 Hyperlipidemia, unspecified; I10 Essential (primary) hypertension; E11.9 Type 2 diabetes mellitus without complications; G81.91 Hemiplegia, unspecified affecting right dominant side; R42 Dizziness and giddiness; E66.9 Obesity, unspecified; R01.1 Cardiac murmur, unspecified; R07.9 Chest pain, unspecified; I73.9 Peripheral vascular disease, unspecified; Z98.61 Coronary angioplasty status; Z79.82 Long term (current) use of aspirin; Z79.899 Other long term (current) drug therapy; Z79.84 Long term (current) use of oral hypoglycemic drugs
CPT/HCPCS: 36415; 83735; 85027; 85610; 80048; 93458; J2250; A9270 ×5; J3010; J1644 ×2; J0360; J3490 ×4

== ENCOUNTER → 2019-01-27 | Outpatient (CLI) | payer MEDICARE, OTHER ==
[2019-01-27 15:52] LABS: ANION GAP 10 (5-19); BLOOD UREA NITROGEN 22 mg/dL (7-20); CALCIUM 10.3 mg/dL (8.4-10.2); CARBON DIOXIDE 30 mmol/L (22-30); CHLORIDE 102 mmol/L (98-107); GLUCOSE 180 mg/dL (75-110); POTASSIUM 4.5 mmol/L (3.6-5.0)
[2019-01-29 10:38] LABS: CREATININE URINE 35.1 mg/dL (Not Estab.); MICROALBUMIN URINE 4.6 ug/mL (Not Estab.)
== END ==
LOC: OD 14:16
PROVIDERS: ATTEND Internal Medicine Nephrology
DX: E11.9 Type 2 diabetes mellitus without complications (principal); R80.9 Proteinuria, unspecified
CPT/HCPCS: 36415; 80048; 82043; 82570

== ENCOUNTER → 2019-02-05 | Outpatient (CLI) | payer MEDICARE | LOC: WC 12:19 | PROVIDERS: ATTEND Preventive Medicine Undersea and Hyperbaric Medicine | DX: L97.514 Non-pressure chronic ulcer of other part of right foot with necrosis of bone (principal) | CPT/HCPCS: 36415; 85652; 86140 ==

== ENCOUNTER → 2019-02-12 | Outpatient (CLI) | payer MEDICAID, MEDICARE, OTHER ==
--- NOTE | 2019-02-12 15:28 | RADIOLOGY REPORT (SQ) ---
EXAM DESCRIPTION: FOOT RIGHT COMPLETE COMPLETED DATE/TIME: 02/12/2019 1:37 pm REASON FOR STUDY: NON-PRS CHRONIC ULCER OTH PRT RIGHT FOOT W NECROSIS OF BONE L97.514 NON-PRS CHRON IC ULCER OTH PRT RIGHT FOOT W NECROSIS COMPARISON: None. NUMBER OF VIEWS: Three views. TECHNIQUE: AP, lateral and oblique radiographic images acquired of the right foot. LIMITATIONS: None. FINDINGS: MINERALIZATION: Normal. BONES: There has been resection of the head of the 1st proximal phalanx head and a portion of the 1st distal phalanx. There appears to be some bone destruction in the 1st distal phalanx. There is been resection of the 2nd toe from the diaphysis of the proximal phalanx. JOINTS: No effusions. SOFT TISSUES: No soft tissue swelling. No foreign body. OTHER: No other significant finding. IMPRESSION: Findings in the 1st distal phalanx concerning for osteomyelitis. TECHNICAL DOCUMENTATION: JOB ID: [id number] [employer]- All Rights Reserved Reading location - IP/workstation name: [email or web address]
== END ==
LOC: WC 12:51
PROVIDERS: ATTEND Preventive Medicine Undersea and Hyperbaric Medicine
DX: L97.514 Non-pressure chronic ulcer of other part of right foot with necrosis of bone (principal)

== ENCOUNTER 2019-09-23 09:59 | Day surgery (SDC) | payer MEDICARE, OTHER ==
[~2019-09-23 09:59] MED LIST changes: -ASPIRIN 325 MG TABLET PO PRN; -ATENOLOL 50 MG TABLET PO PRN; +CHONDR SU A NA/HYALUR INTRAOC KIT (SURGICARE) ONE; -DIAZEPAM 5 MG TABLET PO PRN; -DIPHENHYDRAMINE HCL 50 MG CAPSULE PO PRN; +DORZOLAMIDE HCL 2%/TIMOLOL MALEAT 0.5% OPH SOLN 10 ML OD PRN; +EPINEPHRINE INJ/PF 1 MG/1 ML AMPULE ONE; -FENTANYL CITRATE INJ/PF 100 MCG/2 ML AMPUL ONE; -HEPARIN SOD (PORCINE) 1,000 UNIT/ML 10 ML VIAL ONE; -HEPARIN SODIUM,PORCINE/NS/PF 2,000 UNIT/1,000 ML RTUINJ IV ONE; -HYDRALAZINE HCL INJ/PF 20 MG/1 ML SDV IV ONE; -HYDRALAZINE HCL INJ/PF 20 MG/1 ML SDV ONE; +KETOROLAC TROMETHAMINE 0.45% 4 DROP/0.4 ML DROPERETTE OD PRN; -LIDOCAINE 1% INJ-PF (10 MG/ML) 30 ML SDV ONE; +LIDOCAINE 1%/PHENYLEPHRINE 1.5% 1 ML VIAL ONE; -LOSARTAN POTASSIUM 50 MG TABLET PO PRN; -MIDAZOLAM 2 MG/2 ML INJ ONE; -NITROGLYCERIN 0.4 MG/TAB 25 TAB/BOTTLE SL PRN; -NORMAL SALINE 1000 ML 1,000 ML IV PRN; -RADIAL COCKTAIL SYRINGE 10 ML IV PRN; +TOBRAMYCIN SULFATE/DEXAMETH OPH OINTMENT 3.5 GM ONE
[2019-09-23] MEDS: TETRACAINE HCL 0.5% OPH SOLN 4 ML OD PRN ×3 (10:15→10:40)
[2019-09-23] MEDS: TROPICAMIDE 1% OPH SOLN 15 ML OD PRN ×3 (10:15→10:37)
[2019-09-23] MEDS: BESIFLOXACIN HCL 0.6% OPH SUSP 5 ML BOTTLE OD PRN ×3 (10:15→10:59)
[2019-09-23] MEDS: CYCLOPENTOLATE 0.2%/PHENYLEPHRINE 1% OPH SOLN 2 ML OD PRN ×3 (10:15→10:37)
[2019-09-23] MEDS ORDERED: MIDAZOLAM 2 MG/2 ML INJ ONE (10:30)
[2019-09-23] MEDS ORDERED: FENTANYL CITRATE INJ/PF 100 MCG/2 ML AMPUL ONE (10:30)
== END 2019-09-23 11:50 | disposition home or self-care (01) ==
LOC: SC 09:59
PROVIDERS: ATTEND Ophthalmology
DX: H25.11 Age-related nuclear cataract, right eye (principal); E11.3413 Type 2 diabetes mellitus with severe nonproliferative diabetic retinopathy with macular edema, bilateral; E78.00 Pure hypercholesterolemia, unspecified; I10 Essential (primary) hypertension; Z87.891 Personal history of nicotine dependence; Z79.899 Other long term (current) drug therapy; Z79.84 Long term (current) use of oral hypoglycemic drugs; Z86.73 Personal history of transient ischemic attack (TIA), and cerebral infarction without residual deficits
CPT/HCPCS: 82962; 00142; 66984; V2632; J2250; J3490 ×2; A9270 ×2; J0171; J3010; J2370; 142

== ENCOUNTER 2019-10-07 09:16 | Day surgery (SDC) | payer MEDICARE, OTHER ==
[~2019-10-07 09:16] MED LIST changes: -DORZOLAMIDE HCL 2%/TIMOLOL MALEAT 0.5% OPH SOLN 10 ML OD PRN; -KETOROLAC TROMETHAMINE 0.45% 4 DROP/0.4 ML DROPERETTE OD PRN; +KETOROLAC TROMETHAMINE 0.45% 4 DROP/0.4 ML DROPERETTE OS PRN; -TOBRAMYCIN SULFATE/DEXAMETH OPH OINTMENT 3.5 GM ONE
[2019-10-07] MEDS: CYCLOPENTOLATE 0.2%/PHENYLEPHRINE 1% OPH SOLN 2 ML OS PRN ×3 (09:35→10:00)
[2019-10-07] MEDS: BESIFLOXACIN HCL 0.6% OPH SUSP 5 ML BOTTLE OS PRN ×4 (09:35→10:28)
[2019-10-07] MEDS: TROPICAMIDE 1% OPH SOLN 15 ML OS PRN ×3 (09:35→10:00)
[2019-10-07] MEDS: TETRACAINE HCL 0.5% OPH SOLN 4 ML OS PRN ×3 (09:35→10:05)
[2019-10-07] MEDS ORDERED: DEXTROSE 50%-WATER 25 GM/50 ML DISP.SYRIN IV ONE (09:41)
[2019-10-07] MEDS ORDERED: MIDAZOLAM 2 MG/2 ML INJ ONE (09:46)
[2019-10-07] MEDS ORDERED: FENTANYL CITRATE INJ/PF 100 MCG/2 ML AMPUL ONE (09:46)
[2019-10-07] MEDS: DORZOLAMIDE HCL 2%/TIMOLOL MALEAT 0.5% OPH SOLN 10 ML OS PRN ×2 (10:20→10:28)
[2019-10-07] MEDS: TOBRAMYCIN SULFATE/DEXAMETH OPH OINTMENT 3.5 GM ONE ×2 (10:21→10:28)
== END 2019-10-07 11:10 | disposition home or self-care (01) ==
LOC: SC 09:16
PROVIDERS: ATTEND Ophthalmology
DX: H25.12 Age-related nuclear cataract, left eye (principal); Z98.41 Cataract extraction status, right eye; Z87.891 Personal history of nicotine dependence; E11.9 Type 2 diabetes mellitus without complications; I10 Essential (primary) hypertension; Z86.73 Personal history of transient ischemic attack (TIA), and cerebral infarction without residual deficits; E78.00 Pure hypercholesterolemia, unspecified; I25.2 Old myocardial infarction
CPT/HCPCS: 66984; 82962; 00142; V2632; J2250; J3490 ×3; A9270 ×2; J0171; J3010; J2370; 142

== ENCOUNTER 2020-12-06 15:47 | Emergency (ER) | payer MEDICARE ==
[2020-12-06] MEDS ORDERED: LIDOCAINE 1%/EPINEPHRINE INJ 20 ML VIAL INJ ONE ×2 (17:37→23:45)
--- NOTE | 2020-12-06 17:40 | ER Document Report ---
ED Medical Screen (RME) - General Stated Complaint: FALL Time Seen by Provider: 12/06/20 17:28 Primary Care Provider: ANGEL BRIGHT MD [Primary Care Provider] - Follow up as needed Information source: Patient TRAVEL OUTSIDE OF THE [place] IN LAST 30 DAYS: No - HPI Patient complains to provider of: Fall, head injury Notes: 12/06/20 17:38 Patient here with her daughter. Apparently the patient was walking into her daughter's house earlier today when she tripped over her splint on her right leg causing her to fall and hit her head. She is on Plavix. She denies loss of consciousness. She is complaining of head and right knee pain. They believe the tetanus is up-to-date. Exam: Laceration along the right eyebrow. Bleeding controlled. Superficial laceration to the right maxillary area with ecchymosis and swelling. Subconjunctival hemorrhage to the right eye. Nonfocal neuro exam. Abrasion and mild tenderness to palpation of the right knee. An initial examination was made on the patient as part of the triage process, and it was determined a more comprehensive evaluation was necessary. Initial orders were placed and patient was transferred to another provider in the ED who assumed care and finished evaluation and plan. - Related Data Allergies/Adverse Reactions: No Known Allergies Allergy (Verified 03/07/20 16:45) Past Medical History - Past Medical History Cardiac Medical History: Reports: Hx Coronary Artery Disease, Hx Heart Attack - 2013, Hx Hypertension Pulmonary Medical History: Denies: Hx Asthma, Hx Bronchitis, Hx COPD, Hx Pneumonia Neurological Medical History: Reports: Hx Cerebrovascular Accident - 10/2011 RT SIDED WEAKNESS;USES CANE . Denies: Hx Seizures Endocrine Medical History: Reports: Hx Diabetes Mellitus Type 2 Renal/ Medical History: Denies: Hx Peritoneal Dialysis GI Medical History: Denies: Hx Hepatitis, Hx Hiatal Hernia, Hx Ulcer Musculoskeltal Medical History: Denies Hx Arthritis Infectious Medical History: Denies: Hx Hepatitis Past Surgical History: Reports: Hx Cardiac Surgery - stent placement, Hx Open Heart Surgery - STENT PLACED. Denies: Hx Mastectomy, Hx Pacemaker - Immunizations Hx Diphtheria, Pertussis, Tetanus Vaccination: Yes - UNKNOWN Doctor's Discharge - Discharge Referrals: ANGEL BRIGHT MD [Primary Care Provider] - Follow up as needed
--- NOTE | 2020-12-06 18:57 | RADIOLOGY REPORT (SQ) ---
EXAM DESCRIPTION: CT HEAD WITHOUT IMAGES COMPLETED DATE/TIME: 12/06/2020 6:33 pm REASON FOR STUDY: fall, head injury, on plavix COMPARISON: 09/05/2018 TECHNIQUE: Axial images acquired through the brain without intravenous contrast. Images reviewed wi th bone, brain and subdural windows. Additional sagittal and coronal reconstructions were generated. Images stored on PACS. All CT scanners at this facility use dose modulation, iterative reconstruction, and/or weight based d osing when appropriate to reduce radiation dose to as low as reasonably achievable (ALARA). [facility]: Dose Right [facility]: CareDose [facility]: Dose Right [facility]: Teradose 4D [facility]: Smart [employer] RADIATION DOSE: CT Rad equipment meets quality standard of care and radiation dose reduction techniq ues were employed. CTDIvol: 53.2 mGy. DLP: 884 mGy-cm. mGy. LIMITATIONS: None. FINDINGS: VENTRICLES: Normal size and contour. CEREBRUM: No masses. No hemorrhage. No midline shift. Encephalomalacia in the distribution of the left middle cerebral artery. No evidence of acute infarction. Areas of low density in the white gladys er most likely chronic small vessel ischemic changes. CEREBELLUM: No masses. No hemorrhage. No alteration of density. No evidence for acute infarction. EXTRAAXIAL SPACES: No fluid collections. No masses. ORBITS AND GLOBE: No intra- or extraconal masses. Normal contour of globe without masses. CALVARIUM: No fracture. PARANASAL SINUSES: No fluid or mucosal thickening. SOFT TISSUES: No mass or hematoma. OTHER: No other significant finding. 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 Specifically, there is no intracranial hemorrhage. EVIDENCE OF ACUTE STROKE: NO. COMMENT: Pertinent positive or negative findings of the imaging study reported as a CRITICAL EXAM aristeo BUENO NP at18:51 on 12/06/2020. Category of Critical Exam: Stroke alert. Quality ID # [id number]: Final reports with documentation of one or more dose reduction techniques (e.g., Au tomated exposure control, adjustment of the mA and/or kV according to patient size, use of iterative reconstruction technique) TECHNICAL DOCUMENTATION: JOB ID: [id number] 2010 [employer]- All Rights Reserved Reading location - IP/workstation name: [email or web address]
--- NOTE | 2020-12-06 19:06 | RADIOLOGY REPORT (SQ) ---
EXAM DESCRIPTION: CT CERVICAL SPINE WITHOUT IMAGES COMPLETED DATE/TIME: 12/06/2020 6:33 pm REASON FOR STUDY: fall, head injury, on plavix COMPARISON: 09/05/2018 TECHNIQUE: Axial images acquired through the cervical spine without intravenous contrast. Images re viewed with lung, soft tissue and bone windows. Reconstructed coronal and sagittal MPR images review ed. Images stored on PACS. All CT scanners at this facility use dose modulation, iterative reconstruction, and/or weight based d osing when appropriate to reduce radiation dose to as low as reasonably achievable (ALARA). [facility]: Dose Right [facility]: CareDose [facility]: Dose Right [facility]: Teradose 4D [facility]: [employer] RADIATION DOSE: CT Rad equipment meets quality standard of care and radiation dose reduction techniq ues were employed. CTDIvol: 17.6 mGy. DLP: 345 mGy-cm. mGy. LIMITATIONS: None. FINDINGS: ALIGNMENT: Anatomic. MINERALIZATION: Normal. VERTEBRAL BODIES: No fractures or dislocation. DISCS: Discs are narrowed from C5-C7. Marginal osteophytes are present from C3-C7. FACETS, LATERAL MASSES, POSTERIOR ELEMENTS: Hypertrophic facet changes are present bilaterally. Left more than right. HARDWARE: None in the spine. VISUALIZED RIBS: No fractures. LUNG APICES AND SOFT TISSUES: No significant or acute findings. OTHER: No other significant finding. IMPRESSION: Degenerative disc disease, spondylosis, and facet arthropathy. No acute intracranial im aging finding. TECHNICAL DOCUMENTATION: JOB ID: [id number] Quality ID # [id number]: Final reports with documentation of one or more dose reduction techniques (e.g., Au tomated exposure control, adjustment of the mA and/or kV according to patient size, use of iterative reconstruction technique) 2010 [employer]- All Rights Reserved Reading location - IP/workstation name: [email or web address]
--- NOTE | 2020-12-06 19:08 | RADIOLOGY REPORT (SQ) ---
EXAM DESCRIPTION: CT FACIAL AREA WITHOUT IMAGES COMPLETED DATE/TIME: 12/06/2020 6:33 pm REASON FOR STUDY: fall, head injury, on plavix COMPARISON: None. TECHNIQUE: Noncontrasted images through the facial bones and orbits windowed for bone and soft tissu e. Additional coronal and sagittal reconstructed images reviewed. All images stored on PACS. All CT scanners at this facility use dose modulation, iterative reconstruction, and/or weight based d osing when appropriate to reduce radiation dose to as low as reasonably achievable (ALARA). [facility]: Dose Right [facility]: CareDose [facility]: Dose Right [facility]: Teradose 4D [facility]: Smart [employer] RADIATION DOSE: CT Rad equipment meets quality standard of care and radiation dose reduction techniq ues were employed. CTDIvol: 30.4 mGy. DLP: 517 mGy-cm. mGy. LIMITATIONS: None. FINDINGS: FACIAL BONES: No fracture or bone lesion. ORBITS: Intact. No fracture. Symmetric intact globes and retroorbital soft tissues. PARANASAL SINUSES: Clear. No significant mucosal thickening, mass or fluid. No nasal polyps. Maxill naun sinus outlets are patent. SOFT TISSUES: No mass or edema. INFERIOR BRAIN: Limited view. No acute findings. OTHER: No other significant finding. IMPRESSION: NO ACUTE FINDINGS. TECHNICAL DOCUMENTATION: JOB ID: [id number] Quality ID # [id number]: Final reports with documentation of one or more dose reduction techniques (e.g., Au tomated exposure control, adjustment of the mA and/or kV according to patient size, use of iterative reconstruction technique) 2010 [employer]- All Rights Reserved Reading location - IP/workstation name: [email or web address]
--- NOTE | 2020-12-06 19:23 | RADIOLOGY REPORT (SQ) ---
EXAM DESCRIPTION: KNEE RIGHT 4 VIEWS IMAGES COMPLETED DATE/TIME: 12/06/2020 6:08 pm REASON FOR STUDY: fall, head injury, on plavix COMPARISON: None. NUMBER OF VIEWS: Four views. TECHNIQUE: AP, lateral, and both oblique radiographic images acquired of the right knee. LIMITATIONS: None. FINDINGS: MINERALIZATION: Normal. BONES: No acute fracture or dislocation. Enthesiophyte at the quadriceps tendon insertion. JOINT: N o effusion. SOFT TISSUES: Soft tissue vascular calcifications. No radio-opaque foreign body. OTHER: No other significant finding. IMPRESSION: 1. No acute osseous findings. TECHNICAL DOCUMENTATION: JOB ID: [id number] 2010 [employer]- All Rights Reserved Reading location - IP/workstation name: [email or web address]
--- NOTE | 2020-12-06 23:37 | ER Document Report ---
ED Fall - General Chief Complaint: Fall Injury Stated Complaint: FALL Time Seen by Provider: 12/06/20 17:28 Primary Care Provider: ANGEL BRIGHT MD [Primary Care Provider] - Follow up as needed Information source: Patient Notes: 65-year-old female presented to ED for laceration to the right eyebrow. She states she was walking into her daughter's house when she tripped over her right leg splint. She fell hitting her head. She is on blood thinner Plavix. She denies any loss of consciousness. She states she does have a some pain in her right forehead and right knee. There is a mild abrasion to the right knee. According to family her tetanus is up-to-date. She is alert oriented respirations regular nonlabored speaking in full sentences. All CTs and x-rays that were ordered by David Zafar showed no acute findings. She does have minimal pain to the cervical spine but she states she always has pain in this area. She states the only place her head hurts is the eyebrow where she has the laceration. She states the abrasion to her right knee is painful but she is able to move the knee with no discomfort. She states she does have pain medicine at home. Constitutional: Negative for fever. HENT: Negative for sore throat. Eyes: Laceration above the right eyebrow with bruising to the cheek small scrape to the right cheek CT of face head and neck were done before I examined the patient these were all no acute changes Cardiovascular: Negative for chest pain. Respiratory: Negative for shortness of breath. Gastrointestinal: Negative for abdominal pain, vomiting or diarrhea. Genitourinary: Negative for dysuria. Musculoskeletal: Patient has residual decreased mobility to the right side due to previous stroke Skin: Laceration to the right eyebrow, very superficial scratch to the right cheek and abrasion to the right knee Neurological: Is post CVA 8 years ago. She does have weakness to the right hand and leg but there is no change no increase in weakness. Patient does have a slight headache and tenderness to the cervical but this is her chronic pain. CT of the neck was negative for any acute changes 10 point ROS negative except as marked above and in HPI. VITAL SIGNS: Within normal limits. GENERAL: No acute distress, non-toxic appearance. HEAD: Laceration to the the right eyebrow after falling landing on her face vision to the right cheek small superficial scratch to the cheek bruising periorbital NECK: Cervical tenderness but she states she always has cervical tenderness due to degenerative disc CT was negative CHEST: Clear breath sounds bilaterally. No wheezes, rales, or rhonchi. Planes of tenderness to the right breast no bruising lungs clear no chest wall tenderness VASCULAR: No Edema. Peripheral pulses normal and equal in all extremities. ABDOMEN: Normal and soft with no tenderness, no masses or pulsatile masses. GASTROINTESTINAL: Bowel sounds normal GENITOURINARY: Normal, No tenderness LYMPATHTIC: No lymphadenopathy noted. MUSCULOSKELETAL: Limited range of motion to the right arm and leg due to previous stroke NEUROLOGICAL: Alert and oriented x 3. Patient has previous stroke so she has weakness to right arm and leg and decreased sensation to these. There was neurologically intact for her normal PSYCHIATRIC: Normal Affect, judgement and mood. SKIN: 5 cm laceration to the right eyebrow, half centimeter scratch to the right cheek does not need stitches abrasion to the right knee TRAVEL OUTSIDE OF THE [place] IN LAST 30 DAYS: No - HPI Occurred: Just prior to arrival Where: Home, Outdoors - going into the house Context: Tripped Associated symptoms: None Location of injury/pain: Face, Head, Knee - Right knee, Neck Quality of pain: Achy Severity: Mild Pain Level: 2 - Related data Allergies/Adverse Reactions: No Known Allergies Allergy (Verified 03/07/20 16:45) Past Medical History - General Information source: Patient - Social History Smoking Status: Never Smoker Chew tobacco use (# tins/day): No Frequency of alcohol use: None Drug Abuse: None Lives with: Family Family History: Reviewed & Not Pertinent Patient has suicidal ideation: No Patient has homicidal ideation: No - Past Medical History Cardiac Medical History: Reports: Hx Coronary Artery Disease, Hx Heart Attack - 2013, Hx Hypertension Pulmonary Medical History: Reports: None EENT Medical History: Reports: None Neurological Medical History: Reports: Hx Cerebrovascular Accident - 10/2011 RT SIDED WEAKNESS;USES CANE Endocrine Medical History: Reports: Hx Diabetes Mellitus Type 2 Renal/ Medical History: Reports: None Malignancy Medical History: Reports: None GI Medical History: Reports: None Musculoskeletal Medical History: Reports Hx Arthritis, Reports Hx Musculoskeletal Trauma, Reports Other - Right-sided weakness Skin Medical History: Reports None Psychiatric Medical History: Reports: None Traumatic Medical History: Reports: None Infectious Medical History: Reports: None Past Surgical History: Reports: Hx Cardiac Surgery - stent placement, Hx Open Heart Surgery - STENT PLACED - Immunizations Hx Diphtheria, Pertussis, Tetanus Vaccination: Yes - UNKNOWN Physical Exam - Vital signs Vitals: Temp Pulse Resp BP Pulse Ox 98.6 F 89 20 167/71 H 96 12/06/20 16:43 12/06/20 16:43 12/06/20 16:43 12/06/20 16:43 12/06/20 16:43 Course - Re-evaluation Re-evalutation: 12/07/20 00:30 CT to the head face and neck showed no acute changes. She does have degenerative changes. She does have a prior stroke from 8 years ago. X-rays to the right knee showed no acute changes. Patient tolerated sutures well. She was given instructions for head injury precautions and follow-up for suture removal in 5 days. Patient daughter were able to verbalize understanding and agreement with treatment plan the patient was discharged home. - Vital Signs Vital signs: Temp Pulse Resp BP Pulse Ox 98.4 F 68 16 120/74 98 12/07/20 00:35 12/07/20 00:35 12/07/20 00:35 12/07/20 00:35 12/07/20 00:35 - Laboratory Results Critical Laboratory Results Reviewed: No Critical Results - Radiology Results Critical Radiology Results Reviewed: No Critical Results Procedures - Laceration/Wound Repair Right eyebrow Time completed: 00:20 Wound length (cm): 5 Wound's Depth, Shape: Superficial, Linear Laceration pre-procedure: Sterile PPE donned Anesthetic type: 1% Lidocaine w/epi Volume Anesthetic (mLs): 5 Wound explored: Clean, No foreign body removed Irrigated w/ Saline (mLs): 400 Wound Repaired With: Sutures Suture Size/Type: 5:0, Ethilon Number of Sutures: 7 Layer Closure?: No Post-procedure wound care: Sterile dressing applied Post-procedure NV exam normal: Yes Complications: No Discharge - Discharge Clinical Impression: Abrasion, right knee, initial encounter, Contusion of right breast, initial encounter, Neck pain Fall Qualifiers: Encounter type: initial encounter Qualified Code(s): W19.XXXA - Unspecified fall, initial encounter Head injury Qualifiers: Encounter type: initial encounter Qualified Code(s): S09.90XA - Unspecified injury of head, initial encounter Facial contusion Qualifiers: Encounter type: initial encounter Qualified Code(s): S00.83XA - Contusion of other part of head, initial encounter Laceration of right eyebrow Qualifiers: Encounter type: initial encounter Qualified Code(s): S01.111A - Laceration without foreign body of right eyelid and periocular area, initial encounter Condition: Stable Disposition: HOME, SELF-CARE Additional Instructions: HEAD INJURY PRECAUTIONS: At this point, there is no evidence that your head injury is serious. Observation is necessary, however. Take only clear liquids for the first few hours, unless told otherwise by the doctor. If no pain medication was prescribed, you may take acetaminophen according to the directions on the bottle. Do not take any medication that may alter your level of alertness (unless you've discussed it with the doctor first). Limit activity for the first 24 hours. Bed rest is best. During the first 24 hours, check to see approximately every two to three hours that the patient is easily arousable, responds normally, and can perform common tasks such as walking without difficulty. Contact your doctor or go to the hospital if any of the following things occur: Persistent vomiting, difficulty in arousing the patient, worsening or continued headache, or failure to improve as expected. Head injuries can cause symptoms that persist for a few days or even a few weeks. NECK INJURY (CERVICAL STRAIN): You have a neck strain. This is an injury to the muscles and ligaments in the neck. There is no evidence of a fracture of the neck bones. Also, no injury to the spinal cord or nerve roots was detected. Usually, stiffness and pain INCREASE for the first 24-48 hours after the injury. The pain will gradually resolve and the neck will become more mobile. Most patients are back at work or school within a few days. Typically, complete healing takes about two or three weeks. The usual initial treatment is rest and cold packs. A neck collar may be placed to keep the muscles of the neck at rest. Antiinflammatory and muscle relaxing medication are often used to reduce the spasm and irritation. You should call the doctor, or go to the hospital, if you develop numbness or weakness in any extremity, problems with your bladder or bowel, or pain radiating down the arms. CONTUSION: Your injury has resulted in a contusion -- a crushing of the deep tissues. No injury to important structures was detected during the physician's exam. Contusions vary in the amount of pain they cause, and in the length of time required for healing. Typically, the area will become bruised, and will remain painful to touch for two or three weeks. However, most patients are back to working and playing within a few days. After the initial period of rest and cold-packs, your symptoms (together with the doctor's recommendations) will determine how rapidly you can get back to full activity. Usually this means "do what feels okay, but don't do things that hurt." If re-examination was recommended, it's important to follow up as instructed. Call the doctor or return any time if pain increases, if swelling becomes severe, if you develop numbness or weakness in an injured extremity, or if any other alarming symptoms occur. Facial Laceration A laceration on the face usually heals quickly. Our treatment goal will be to avoid an unsightly scar or stitch-cooley. Your cut has been closed with the best techniques to avoid scarring, but a great deal depends on how well you protect the laceration -- and on your inherited tendency to scar. As facial cuts are usually caused by a blunt injury, it's usually best to rest for a day to avoid swelling. Do not allow any bumping or rubbing of the area. Keep the stitches dry. Follow the treatment plan the doctor has discussed with you and DO NOT DELAY getting the stitches out. Once stitches are removed, continue to protect the area from trauma and sunlight (use a sunscreen) for about six months. If any signs of infection occur (swelling, redness, increasing tenderness, red streaks, tender lumps in the neck or near the ear on the side of the laceration, or fever), see the doctor immediately. ABRASIONS: An abrasion is a scraping injury of the skin. Some scarring may result. The seriousness of an abrasion is not always obvious at first. Hidden tissue damage may be present and infection may occur despite proper care. Complete healing may take from ten days to as long as a month. The healing time depends on the depth of the abrasion, and on the amount of crushing of underlying tissues from the injury. Keep the wound and dressing clean. Do not shower or bathe the area until okayed by the doctor. If the dressing gets wet, remove it and blot the wound dry, then reapply a clean dressing. Dressings should be changed every day. Sunscreen should be used for six months after the skin is healed. If any signs of infection occur (swelling, redness, increasing tenderness, red streaks, profuse purulent drainage from the abrasion, tender lumps in the armpit or groin above the abrasion, or fever), see the doctor immediately. USE OF TYLENOL (ACETAMINOPHEN): Acetaminophen may be taken for pain relief or fever control. It's much safer than aspirin, offering a wider range of "safe" dosages. It is safe during . Some brand names are Tylenol, Panadol, Datril, Anacin 3, Tempra, and Liquiprin. Acetaminophen can be repeated every four hours. The following are maximum recommended dosages: WEIGHT Dose Drops Elixir Chewable(80mg) (LBS.) drprs=droppers tsp=teaspoon 6 40 mg 0.4 ml (1/2) 6-11 80 mg 0.8 ml (full) tsp 1 tab 12-16 120 mg 1 1/2 drprs 3/4 tsp 1 1/2 tabs 17-23 160 mg 2 drprs 1 tsp 2 tabs 24-30 240 mg 3 drprs 1 1/2 tsp 3 tabs 30-35 320 mg 2 tsp 4 tabs 36-41 360 mg 2 1/4 tsp 4 1/2 tabs 42-47 400 mg 2 1/2 tsp 5 tabs 48-53 480 mg 3 tsp 6 tabs 54-59 520 mg 3 1/4 tsp 6 1/2 tabs 60-64 560 mg 3 1/2 tsp 7 tabs 65-70 600 mg 3 3/4 tsp 7 1/2 tabs 71-76 640 mg 4 tsp 8 tabs 77-82 720 mg 4 1/2 tsp 9 tabs 83-88 800 mg 5 tsp 10 tabs >89 pounds or adults 650 mg to 900 mg Acetaminophen can be repeated every four hours. Maximum dose not to exceed 4000 mg a day. These maximum recommended dosages are slightly higher than the dosages written on the product container, but these dosages are very safe and below the toxic dosage for acetaminophen. SOAP CLEANSING: Gently wash the wound daily using a mild soap (like Ivory, Phisoderm, Neutrogena). Use warm water, rubbing gently until all debris, ooze, and crusting have been washed from the wound. Allow to dry briefly (about 10 minutes) after cleaning. Repeat this cleansing at least three times a day for the first two days and then once or twice a day. ANTIBIOTIC OINTMENT PROTECTION: Your wounds are such that dressing them is not practical or optional. After cleansing, you should apply a thin coating of antibiotic ointment (Bacitracin, not Neosporin) to the wounds at least three times daily. This lessens infection risk, and may decrease the amount of scarring. Use a q-tip or dull butter knife, not your finger, to apply this ointment. Any debris or ooze which builds up in the ointment should be gently rubbed off with a sterile gauze pad. Harder crusting may need to be gently scrubbed off with a clean wash cloth with soap and warm water, perhaps applying a warm, wet wash cloth to the wound for ten minutes first. Development of redness, severe itching, or blistering may mean allergy to the ointment. See the doctor. FOLLOW-UP CARE: Please return in __3___ days for an infection check and dressing change. Your sutures should be removed in ____5_ days. To facilitate a timely removal of your sutures, you may return to the Emergency Department at [facility]. You do not need to call for an appointment, but the best time to come in for suture removal is early in the morning. If you have been referred to another physician for follow-up care, call that physicians office for an appointment as you were instructed. If you experience a significant change in your laceration, or if you are concerned there may be an infection (swelling, redness, drainage, increasing tenderness, red streaks, tender lumps in the armpit or groin above the laceration, or fever), return to the Emergency Department immediately re-evaluation. Forms: Elevated Blood Pressure, Parent Work Note Referrals: ANGEL BRIGHT MD [Primary Care Provider] - Follow up as needed
[2020-12-07 00:36] VITALS: BP 120/74
== END 2020-12-07 00:34 | disposition home or self-care (01) ==
LOC: ER 15:47
DX: S80.211A Abrasion, right knee, initial encounter (principal); S01.111A Laceration without foreign body of right eyelid and periocular area, initial encounter; S09.90XA Unspecified injury of head, initial encounter; W01.198A Fall on same level from slipping, tripping and stumbling with subsequent striking against other object, initial encounter; Z79.02 Long term (current) use of antithrombotics/antiplatelets; I25.10 Atherosclerotic heart disease of native coronary artery without angina pectoris; I25.2 Old myocardial infarction; I10 Essential (primary) hypertension; E11.9 Type 2 diabetes mellitus without complications
CPT/HCPCS: 12013; 99284; 73564; 70450; 70486; 72125; J3490